=== PATIENT | male | born 1995 | race Asian ===

== ENCOUNTER → 2016-09-12 | Outpatient (CLI) | payer BC ==
--- NOTE | 2016-09-12 13:38 | DIAGNOSTIC IMAGING REPORT ---
LEFT HAND MIN 3 VIEWS ROUTINE CLINICAL HISTORY: LEFT HAND PAIN trauma. Pain. COMPARISON: None. DISCUSSION: Cortical evulsion fracture base proximal phalanx fifth finger. No evidence dislocation. All remaining osseous structures are unremarkable. There is no evidence for soft tissue swelling. IMPRESSION: Cortical evulsion base proximal phalanx fifth finger. Electronically signed by: Chad Smith M.D. 09/12/2016 1:37 PM Dictated Date/Time: 09/12/2016 1:36 PM
== END | disposition home or self-care (01) ==
LOC: C.RAD1850 13:27
PROVIDERS: ATTEND Nurse Practitioner Family
DX: S62.617A Displaced fracture of proximal phalanx of left little finger, initial encounter for closed fracture (principal); W03.XXXA Other fall on same level due to collision with another person, initial encounter

== ENCOUNTER → 2016-09-21 | Outpatient (CLI) | payer BC ==
--- NOTE | 2016-09-21 14:48 | DIAGNOSTIC IMAGING REPORT ---
LEFT HAND MIN 3 VIEWS CLINICAL HISTORY: Fracture COMPARISON: 09-27 DISCUSSION: There is no change in alignment of the intra-articular chip/avulsion fracture arising from the radial base of the proximal phalanx of the fifth finger. No additional fractures are visualized. There is no evidence for soft tissue swelling. IMPRESSION: No change in alignment of the chip/avulsion fracture arising from the base of the proximal phalanx of the fifth finger Electronically signed by: Guillaume Freedman M.D. 09/21/2016 2:46 PM Dictated Date/Time: 09/21/2016 2:45 PM
== END | disposition home or self-care (01) ==
LOC: C.RDSM 14:02
PROVIDERS: ATTEND Physician Assistant
DX: S62.617A Displaced fracture of proximal phalanx of left little finger, initial encounter for closed fracture (principal); X58.XXXA Exposure to other specified factors, initial encounter

== ENCOUNTER → 2016-10-31 | Outpatient (CLI) | payer BC ==
--- NOTE | 2016-10-31 13:56 | DIAGNOSTIC IMAGING REPORT ---
LEFT HAND 4 VIEWS CLINICAL HISTORY: Follow-up fracture. FINDINGS: 4 views of left hand are compared to study dated 09/21/2016. There is unchanged appearance of a minimally distracted avulsion fracture at the base of the fifth proximal phalanx. No additional fracture is seen. The joint spaces of the hand are well-maintained. The overlying soft tissues are normal in appearance. IMPRESSION: Unchanged appearance of a small avulsion fracture at the base of the fifth proximal phalanx as compared to 09/21/2016. Electronically signed by: Edmond Lopez M.D. 10/31/2016 1:55 PM Dictated Date/Time: 10/31/2016 1:54 PM
== END | disposition home or self-care (01) ==
LOC: C.RDSM 13:30
PROVIDERS: ATTEND Physician Assistant
DX: Z09 Encounter for follow-up examination after completed treatment for conditions other than malignant neoplasm (principal); S62.617A Displaced fracture of proximal phalanx of left little finger, initial encounter for closed fracture; X58.XXXA Exposure to other specified factors, initial encounter

== ENCOUNTER → 2016-11-11 | Outpatient (CLI) | payer OTHER | END | disposition home or self-care (01) | LOC: C.LAB 05:02 | DX: Z02.83 Encounter for blood-alcohol and blood-drug test (principal) ==